=== PATIENT | female | born 1965 | race African-American/Black ===

== ENCOUNTER 2016-06-26 12:51 | Emergency (ER) | payer OTHER ==
[~2016-06-26] VITALS: Ht 167.6 cm; Wt 82.6 kg
[~2016-06-26 12:51] MED LIST: APAP500; ASPIRIN EC81 M1 PO; CIPROFLOXACIN500 M3 PO; COLACE100 MG PO; FERROUS SULFAT325 M1 PO; FLAGYL500 MG PO; GLYCOLAX POWDER17 GM PO; IBUPROFEN 200200 M1 PO; IBUPROFEN 600600 M1 PO; ULTRAM ER100 MG PO; VALIUM5 MG PO; WOMEN'S DAILY1 EAC3 PO
[2016-06-26] MEDS ORDERED: PREDNISONE 20 M20 MG PO (15:32)
[2016-06-26] MEDS ORDERED: LEVAQUIN 500 M500 M2 PO (15:32)
== END 2016-06-26 17:39 | disposition home or self-care (01) ==
LOC: ER 12:51
DX: J18.9 Pneumonia, unspecified organism (principal); J98.01 Acute bronchospasm; Z88.5 Allergy status to narcotic agent; Z88.0 Allergy status to penicillin; Z88.8 Allergy status to other drugs, medicaments and biological substances

== ENCOUNTER → 2016-10-26 | Outpatient (CLI) | payer OTHER ==
[~2016-10-26] MED LIST changes: +LEVAQUIN 500 M500 M2 PO; +PREDNISONE 20 M20 MG PO
== END ==
LOC: RAD 11:15
DX: M25.571 Pain in right ankle and joints of right foot (principal)